=== PATIENT | male | born 1960 | race Caucasian/White ===

== ENCOUNTER 2016-04-14 11:46 | Inpatient (IN) | payer OTHER ==
[2016-04-14] VITALS (7 sets, daily range): BP systolic 142–174; BP diastolic 70–94
[~2016-04-14] VITALS: Ht 177.8 cm; Wt 73.9 kg
[~2016-04-14 11:46] MED LIST: ANAPROX DS1 TAB PO; ASPIR 8181 MG PO; DILAUDID2 MG/M1 IV; DOCUSATE SODIU100 MG PO; DURAGESIC25 MCG TOP; FOLIC ACID 1 MG PO; KCL IV; LIDODERM 5% PAT1 PAT EXT; MIRALAX17 GM PO; NICODERM C21 MG/24 H TOP; PROTONIX INJ40 MG IV; SANDOSTATI SC; Senokot S PO; TYLENOL TAB 32325 MG PO; Theragran Vitamins PO; [UNRECOGNIZED DRUG - OTHER] IV
--- NOTE | 2016-04-14 11:51 | NUR ---
PT TO ED WITH C/O VOMITED X 1 THIS AM, C/O UPPER ABD AND LEFT FLANK PAIN, "I HAVE A STENT IN MY PANCREAS". "THIS HAS BEEN GOING ON FOR THE PAST YEAR ON AND OFF, NOW IT'S WORSE".
--- NOTE | 2016-04-14 12:01 | ED GI/GU/ABDOMINAL COMPLAINT ---
History of Present Illness General Chief Complaint: Abdominal Pain/Flank Pain Stated Complaint: BIBA FOR ABD. PAIN Source: patient, old records, EMS Exam Limitations: no limitations Vital Signs & Intake/Output Vital Signs & Intake/Output Vital Signs Date Time Temp Pulse Resp B/P Pulse O2 O2 Flow FiO2 Ox Delivery Rate 04/14 1640 98.0 76 18 142/78 96 Room Air 04/14 1638 96 04/14 1549 97.0 80 18 174/90 04/14 1533 90 18 170/92 97 Room Air 04/14 1154 96.2 75 20 121/79 98 Room Air Room Air Allergies Coded Allergies: No Known Allergies (04/14/16) Reconcile Medications No Known Home Medications Triage Note: PT TO ED WITH C/O VOMITED X 1 THIS AM, C/O UPPER ABD AND LEFT FLANK PAIN, "I HAVE A STENT IN MY PANCREAS". Triage Nurses Notes Reviewed? yes Onset: Abrupt Duration: hour(s): (3) Timing: single episode today Quality/Severity: sharpness, severe Severity Numbers: 10 Location: epigastric, LUQ Radiation: back Activities at Onset: none Prior Abdominal Problems: similar symptoms No Modifying Factors: none Associated Symptoms: nausea/vomiting HPI: This is a 56 year old male who presents to the ER for chief complaint of abdominal pain, nausea and vomiting that started 3 hours prior to arrival. History of pancreatitis and pancreatic stent last year that was done at [place]. It is in the left upper quadrant and radiates to his back. No fever or chills. He states he has similar symptoms previously for otitis in 2015. At that time he was transferred from here to [place] where he had a pancreatic stent placed. He states he was very sick at that time and had some drains placed. No history of pancreatitis since his previous episode. He does drink alcohol a few times a week approximately 3-5 beers admits to drinking some beers last night. He states he was never told that he could drink alcohol. He also states he was never followed up at [place] as he was never given follow-up instructions. Past History Travel History Traveled to [place] past 21 day No Medical History Any Pertinent Medical History? see below for history Neurological: NONE EENT: NONE Cardiovascular: NONE Respiratory: NONE Gastrointestinal: GERD Hepatic: NONE Renal: NONE Musculoskeletal: chronic back pain, sciatica Psychiatric: NONE Endocrine: NONE Blood Disorders: NONE Cancer(s): NONE IDENTIFICATION OFFICER/Reproductive: NONE History of MRSA: No History of VRE: No History of CDIFF: No Surgical History Surgical History: appendectomy, PANCREATIC STENT Psychosocial History Who do you live with Patient/Self Services at Home None What is your primary language Latvian Tobacco Use: Current Not Daily Daily Tobacco Use Amount/Type: => 5 Cigarettes daily ETOH Use: occasional use Illicit Drug Use: marijuana Family History Family History, If Any: MOTHER (mother is alive and diabetic). FATHER (father of pneumonia). Hx Contributory? No Review of Systems Review of Systems Constitutional: Denies: chills, fever. EENTM: Reports: no symptoms. Respiratory: Denies: cough, short of breath, sputum production. Cardiovascular: Denies: chest pain, palpitations. GI: Reports: abdominal pain, nausea, vomiting. Denies: diarrhea. Genitourinary: Reports: no symptoms. Musculoskeletal: Reports: no symptoms. Skin: Reports: no symptoms. Neurological/Psychological: Reports: no symptoms. Hematologic/Endocrine: Denies: bruising, bleeding, polyuria, polydipsia. Immunologic/Allergic: Denies: splenectomy. All Other Systems: Reviewed and Negative Physical Exam Physical Exam General Appearance: well developed/nourished, alert, awake, mild distress Head: atraumatic, normal appearance Eyes: Bilateral: normal appearance, PERRL, EOMI. Ears, Nose, Throat, Mouth: hearing grossly normal, moist mucous membrane Neck: normal inspection, supple, full range of motion Respiratory: normal breath sounds, chest non-tender, no respiratory distress Cardiovascular: regular rate/rhythm Peripheral Pulses: 2+ radial (R), 2+ radial (L) Gastrointestinal: soft, tenderness (EPIGASTRIUM, LEFT UPPER QUADRA), NO REBOUND OR GUARDING Back: normal inspection, normal range of motion Extremities: normal range of motion Neurologic/Psych: no motor/sensory deficits, awake, alert, oriented x 3 Core Measures ACS in differential dx? No Severe Sepsis Present: No Septic Shock Present: No Progress Differential Diagnosis: biliary colic, gastritis, hepatitis, pancreatitis, peptic ulcer, PUD/GERD Plan of Care: Orders Procedure Date/time Status Clear Liquid Diet 04/15 B Active CBC WITHOUT DIFFERENTIAL 04/15 599 Active BASIC ELECTROLYTES PLUS BUN&CR 04/15 599 Active Nothing by Mouth 04/14 D Complete Pathway - chart 04/14 1640 Active House Staff 04/14 1640 Active Code Status 04/14 1640 Active CIWA 04/14 1549 Active Patient Data 04/14 1524 Active Admit to inpatient 04/14 1517 Active Vital Signs 04/14 1517 Active Code Status 04/14 1517 Complete EKG 04/14 1339 Active Intake & Output 04/14 1246 Active URINALYSIS 04/14 1218 Complete PARTIAL THROMBOPLASTIN TIME 04/14 1218 Complete PROTHROMBIN TIME 04/14 1218 Complete LIPASE 04/14 1218 Complete ETHANOL 04/14 1218 Complete COMPREHENSIVE METABOLIC PANEL 04/14 1218 Complete CBC WITHOUT DIFFERENTIAL 04/14 1218 Complete AMYLASE 04/14 1218 Complete AEROSOL (GEN) 04/14 UNK Complete VTE Mechanical Prophylaxis 04/14 UNK Active PHYSICIAN CONSULT 04/14 UNK Active Current Medications Sig/Anselmo Start time Last Medication Dose Stop Time Status Admin Acetaminophen 650 MG Q8P PRN 04/14 1645 UNVr (Tylenol) Acetaminophen 1,000 MG Q8P PRN 04/14 1645 UNVr (Ofirmev) Lactated Ringer's 1,000 ML Q6H 04/14 1645 UNVr (Lactated Ringers) Morphine Sulfate 2 MG Q4P PRN 04/14 1645 UNVr (Morphine) Enoxaparin Sodium 40 MG DAILY 04/14 1633 UNVr (Lovenox) Laboratory Tests 04/14/16 1418: Urinalysis LIGHT H, Urine Color YEL, Urine Clarity HAZY H, Urine pH 5.5, Ur Specific [place] >= 1.030, Urine Protein TRACE H, Urine Ketones TRACE H, Urine Nitrite NEG, Urine Bilirubin NEG, Urine Urobilinogen 0.2, Ur Leukocyte Esterase NEG, Ur Microscopic SEDIMENT EXAMINED, Urine RBC 3-5, Urine WBC RARE, Ur Epithelial Cells FEW, Granular Casts 1-3 H, Urine Mucus FEW, Urine Hemoglobin MOD H, Urine Glucose 100 H 04/14/16 1234: Anion Gap 19 H, Estimated GFR > 60, BUN/Creatinine Ratio 11.7, Glucose 169 H, Calcium 9.0, Total Bilirubin 0.6, AST 21, ALT 26, Alkaline Phosphatase 141 H, Total Protein 7.5, Albumin 4.1, Globulin 3.4, Albumin/Globulin Ratio 1.2, Amylase 1060 H, Lipase 8724 H, PT 10.0, INR 0.95, APTT 31, CBC w Diff NO MAN DIFF REQ, RBC 5.07, MCV 93.2, MCH 31.6 H, RDW 14.5, MPV 6.8 L, Gran % 81.3 H, Lymphocytes % 14.2 L, Monocytes % 4.1, Eosinophils % 0.1, Basophils % 0.3, Absolute Granulocytes 10.3 H, Absolute Lymphocytes 1.8, Absolute Monocytes 0.5, Absolute Eosinophils 0, Absolute Basophils 0, PUBS MCHC 33.9, Serum Alcohol 73.0 No pancreatic stent visualized on CAT scan of the abdomen. Patient presents with acute alcoholic pancreatitis. He is requiring multiple cases of IV pain medications secondary to severe 10/ 10 pain. One episode of vomiting here. He was given IV fluids. GI consultation. He patient admitted to the hospitalist service. (JANET FREDERICK,[facility]) Diagnostic Imaging: Viewed by Me: CT Scan. Discussed w/RAD: CT Scan. Radiology Impression: EXAM TYPE: CAT - CT ABD & PELVIS W/O IV CONTRAS EXAMINATION: CT ABDOMEN AND PELVIS WITHOUT CONTRAST CLINICAL INFORMATION: History of pancreatitis with stent placement COMPARISON: CT scan of the abdomen and pelvis dated 10/13/2014 TECHNIQUE: Multidetector volumetric imaging was performed from the superior aspect of the liver through the pubic symphysis. Sagittal and coronal reformatted images were obtained on the technologist's workstation. DLP: 297 mGy-cm. FINDINGS: LUNG BASES: The lung bases included on this study are unremarkable. LIVER, GALLBLADDER, AND BILIARY TREE: Unenhanced liver is normal in size and attenuation with no focal finding The gallbladder is moderately distended. There is an intraluminal calcification layering dependently, measuring approximately 0.6 cm, likely representing a gallstone. No gallbladder wall edema or pericholecystic fluid identified. No apparent intrahepatic biliary ductal dilatation on noncontrast images. No common bile duct dilatation is appreciated. A stent is not identified on the current CT. PANCREAS: The cystic masses associated with the pancreas seen on the earlier study are no longer identified. The pancreatic duct in the body and tail measures between 0.4 and 0.5 cm. The pancreatic and common bile ducts in the region of the pancreatic head are not well delineated. No stent is seen. There is some mild edema in the mesenteric fat surrounding the body and head of the pancreas but no peripancreatic fluid collections are seen at this time. The edematous changes have improved since the 2015 exam. No discrete pancreatic mass delineated on the noncontrast enhanced study SPLEEN: The spleen is normal in size and attenuation with no focal findings ADRENAL GLANDS: Mild prominence to the left adrenal gland is noted without a discrete mass. Right adrenal gland is normal in appearance. KIDNEYS AND URETERS: Both kidneys are normal in size and cortical thickness with no hydronephrosis, mass, stone or perinephric collection. BLADDER: The urinary bladder is incompletely distended and unremarkable in appearance GASTROINTESTINAL TRACT: There is no evidence for large or small bowel obstruction or acute inflammation. There is some diverticulosis of the sigmoid and descending colon without acute diverticulitis. Some radiodense material which may represent a suture line in the region of the ileocecal junction ABDOMINAL WALL: No hernia is seen. LYMPH NODES: No bulky mesenteric or retroperitoneal adenopathy is seen at this time. There are a few mildly prominent peripancreatic lymph nodes, improved over the previous study VASCULAR: No aneurysm is seen in the abdominal aorta PELVIC VISCERA: No mass is seen in the pelvis. There is no free fluid or loculated fluid collection OSSEOUS STRUCTURES: No acute bony abnormality IMPRESSION: The changes of pancreatitis and associated pseudocysts seen on the 2015 study are no longer identified. There is some mild residual dilatation of the pancreatic duct in the mid body and tail along with some mild edema in the peripancreatic fat. The pancreas duct in the region of the head of the pancreas is not well delineated and the stent is not identified. There is no common bile duct dilatation or common bile duct stent seen There is cholelithiasis without evidence for acute cholecystitis Initial ED EKG: NSR Departure Departure Time of Disposition: 1527 Disposition: STILL A PATIENT Condition: Stable Clinical Impression Primary Impression: Pancreatitis Referrals: VIDHI MATIAS DO (PCP/Family) Departure Forms: Customer Survey General Discharge Information Prescriptions: Current Visit Scripts No Known Home Medications Admission Note Spoke With: SUSANA FREDERICK,[place] Documentation of Exam: Documentation of any treatments & extenuating circumstances including Concerns Regarding Discharge (functional status, medication knowledge or non-compliance, living conditions, etc.) that warrant an admission rather than observation: [NPO , IV FLUIDS, PAIN CONTROL, MONITOR I/O, GI CONSULTATION, MONITOR FOR SIGNS OF WITHDRAWAL] Critical Care Note Critical Care Note Critical Care Time: 30-74 min
--- NOTE | 2016-04-14 12:02 | NUR ---
PT AMB TO ROOM 8, AWAITING EVAL.
--- NOTE | 2016-04-14 12:14 | NUR ---
DR GONZALES AT BEDSIDE.
--- NOTE | 2016-04-14 12:36 | NUR ---
BLOOD DRAWN AND SENT TO LAB. LAV,SST,BLUE
[2016-04-14 12:50] LABS: ABSOLUTE BASOPHIL COUNT 0 /CUMM (0.0-0.2); ABSOLUTE EOSINOPHIL COUNT 0 /CUMM (0.0-0.7); ABSOLUTE GRANULOCYTE CT 10.3 /CUMM (1.4-6.5); ABSOLUTE LYMPH COUNT 1.8 /CUMM (1.2-3.4); ABSOLUTE MONOCYTE COUNT 0.5 /CUMM (0.10-0.60); BASOPHIL % 0.3 % (0.0-2.0); EOSINOPHIL % 0.1 % (0-5); HEMATOCRIT 47.3 % (42-52); MEAN CORPUSCULAR HGB 31.6 PG (27.0-31.0); MEAN CORPUSCULAR HGB CONC 33.9 G/DL (33.0-37.0); MEAN CORPUSCULAR VOLUME 93.2 FL (80.0-94.0); MEAN PLATELET VOLUME 6.8 FL (7.4-10.4); PLATELET COUNT 231 /CUMM (130-400); RBC DISTRIBUTION WIDTH 14.5 % (11.5-14.5); RED BLOOD CELL CT 5.07 /CUMM (4.70-6.10); WHITE BLOOD CELL COUNT 12.7 /CUMM (4.8-10.8)
[2016-04-14 12:51] LABS: GRANULOCYTE % 81.3 % (42.2-75.2)
[2016-04-14 13:04] LABS: PTT 31 SEC (25-37)
--- NOTE | 2016-04-14 14:11 | NUR ---
PT TO CAT SCAN
--- NOTE | 2016-04-14 14:15 | NUR ---
BACK FROM CAT SCAN.
--- NOTE | 2016-04-14 14:18 | NUR ---
URINE TRIO SENT.
--- NOTE | 2016-04-14 14:51 | CT SCAN REPORT ---
EXAMINATION: CT ABDOMEN AND PELVIS WITHOUT CONTRAST CLINICAL INFORMATION: History of pancreatitis with stent placement COMPARISON: CT scan of the abdomen and pelvis dated 10/13/2014 TECHNIQUE: Multidetector volumetric imaging was performed from the superior aspect of the liver through the pubic symphysis. Sagittal and coronal reformatted images were obtained on the technologist's workstation. DLP: 297 mGy-cm. FINDINGS: LUNG BASES: The lung bases included on this study are unremarkable. LIVER, GALLBLADDER, AND BILIARY TREE: Unenhanced liver is normal in size and attenuation with no focal finding The gallbladder is moderately distended. There is an intraluminal calcification layering dependently, measuring approximately 0.6 cm, likely representing a gallstone. No gallbladder wall edema or pericholecystic fluid identified. No apparent intrahepatic biliary ductal dilatation on noncontrast images. No common bile duct dilatation is appreciated. A stent is not identified on the current CT. PANCREAS: The cystic masses associated with the pancreas seen on the earlier study are no longer identified. The pancreatic duct in the body and tail measures between 0.4 and 0.5 cm. The pancreatic and common bile ducts in the region of the pancreatic head are not well delineated. No stent is seen. There is some mild edema in the mesenteric fat surrounding the body and head of the pancreas but no peripancreatic fluid collections are seen at this time. The edematous changes have improved since the 2015 exam. No discrete pancreatic mass delineated on the noncontrast enhanced study SPLEEN: The spleen is normal in size and attenuation with no focal findings ADRENAL GLANDS: Mild prominence to the left adrenal gland is noted without a discrete mass. Right adrenal gland is normal in appearance. KIDNEYS AND URETERS: Both kidneys are normal in size and cortical thickness with no hydronephrosis, mass, stone or perinephric collection. BLADDER: The urinary bladder is incompletely distended and unremarkable in appearance GASTROINTESTINAL TRACT: There is no evidence for large or small bowel obstruction or acute inflammation. There is some diverticulosis of the sigmoid and descending colon without acute diverticulitis. Some radiodense material which may represent a suture line in the region of the ileocecal junction ABDOMINAL WALL: No hernia is seen. LYMPH NODES: No bulky mesenteric or retroperitoneal adenopathy is seen at this time. There are a few mildly prominent peripancreatic lymph nodes, improved over the previous study VASCULAR: No aneurysm is seen in the abdominal aorta PELVIC VISCERA: No mass is seen in the pelvis. There is no free fluid or loculated fluid collection OSSEOUS STRUCTURES: No acute bony abnormality IMPRESSION: The changes of pancreatitis and associated pseudocysts seen on the 2015 study are no longer identified. There is some mild residual dilatation of the pancreatic duct in the mid body and tail along with some mild edema in the peripancreatic fat. The pancreas duct in the region of the head of the pancreas is not well delineated and the stent is not identified. There is no common bile duct dilatation or common bile duct stent seen There is cholelithiasis without evidence for acute cholecystitis
--- NOTE | 2016-04-14 15:31 | NUR ---
REPORT REC'D PATIENT RE-SEEN BY ER MD MATTHEW MEDICATED W/ 1 MG DILAUDID IV 1000 ML D51/2 NS AT 150 / HR EVAL BY HOUSE STAFF
--- NOTE | 2016-04-14 16:05 | NUR ---
RE-SEEN BY ER MD PATIENT STILL C/O INCREASED ABD PAIN MEDICATED W/ ATIVAN AND DILAUDID PATIENT REMAINS ALERT ORIENTED SKIN WARM DRY B/P REMIANS ELEVATED
--- NOTE | 2016-04-14 16:09 | History & Physical ---
MACEY HITCHCOCK 04/14/16 1609: General Information and HPI MD Statement: I have seen and personally examined ASTRID MICHAEL and documented this H&P. The patient is a 56 year old M who presented with a patient stated chief complaint of abdominal pain Source of Information: patient, old records Exam Limitations: no limitations History of Present Illness: 56-year-old man with past history significant for alcohol abuse, pancreatitis complicated by pseudocyst status post stent done at [place] in 2014, here for evaluation of abdominal pain. States that this afternoon he had severe abdominal pain severity of 12/10 with radiation to his back. Patient reports that he often has abdominal pain which is constantly there since the past few years. Aggravated on moving and walking around and sometimes is improved on eating. However this afternoon it was so severe that he decided to come to the ED. Reports having some nausea and nonbloody, nonbilious vomiting. Denies fever, chills, shortness of breath. Patient continues to drink alcohol, drinks 1-2 beers every day with dinner and on Wednesdays drinks about 3-4 beers. Allergies/Medications Allergies: Coded Allergies: No Known Allergies (04/14/16) Home Med list No Known Home Medications Compliance With Home Meds: UNKNOWN Past History Travel History Traveled to [place] past 21 day No Medical History Neurological: NONE EENT: NONE Cardiovascular: NONE Respiratory: NONE Gastrointestinal: GERD Hepatic: NONE Renal: NONE Musculoskeletal: chronic back pain, sciatica Psychiatric: NONE Endocrine: NONE Blood Disorders: NONE Cancer(s): NONE SCAFFOLD WORKER/Reproductive: NONE History of MRSA: No History of VRE: No History of CDIFF: No Surgical History Surgical History: appendectomy, PANCREATIC STENT Past Family/Social History Family History Relations & Conditions if any MOTHER (mother is alive and diabetic). FATHER (father of pneumonia). Psychosocial History Where do you live? Home Who Do You Live With? self Services at Home: None Primary Language: Hebrew ETOH Use: occasional use Illicit Drug Use: marijuana Living Will? no Power of Commanding Officer Motorized Squad/HCP? no Name of POA/HCP: daughter Functional Ability ADLs Independent: dressing, eating, toileting, bathing. Ambulation: independent IADLs Independent: shopping, housework, finances, food prep, telephone, transportation , medication admin. Review of Systems Review of Systems Constitutional: Denies: chills, diaphoresis, fever, malaise, weakness, unexplained weight loss. Cardiovascular: Denies: chest pain, edema, orthopena, palpitations, peripheral edema, syncope. Respiratory: Denies: cough, hemoptysis, orthopnea, short of breath, sputum production, stridor, wheezing. GI: Reports: abdominal pain, nausea, vomiting. Exam & Diagnostic Data Last 24 Hrs of Vital Signs/I&O Vital Signs Date Time Temp Pulse Resp B/P Pulse O2 O2 Flow FiO2 Ox Delivery Rate 04/14 2149 97.5 76 20 160/94 95 04/14 1946 97.8 68 18 152/80 04/14 1854 97.8 84 18 164/90 04/14 1822 98.0 84 18 144/70 04/14 1714 97.8 80 18 142/80 04/14 1640 98.0 76 18 142/78 96 Room Air 04/14 1638 96 04/14 1549 97.0 80 18 174/90 04/14 1533 90 18 170/92 97 Room Air 04/14 1154 96.2 75 20 121/79 98 Room Air Room Air Intake & Output 04/14 1600 04/14 0800 04/14 0000 Intake Total 1000 Output Total Balance 1000 Intake, IV 1000 Patient 165 lb Weight Physical Exam General Appearance Alert, Oriented X3, Cooperative, No Acute Distress Cardiovascular Regular Rate, Normal S1, Normal S2 Lungs Clear to Auscultation, Normal Air Movement Abdomen Normal Bowel Sounds, Soft, midepigastric tenderness Extremities No Edema Diagnostic Data Other Results - CT ABD & PELVIS W/O IV CONTRAST FINDINGS: LUNG BASES: The lung bases included on this study are unremarkable. LIVER, GALLBLADDER, AND BILIARY TREE: Unenhanced liver is normal in size and attenuation with no focal finding The gallbladder is moderately distended. There is an intraluminal calcification layering dependently, measuring approximately 0.6 cm, likely representing a gallstone. No gallbladder wall edema or pericholecystic fluid identified. No apparent intrahepatic biliary ductal dilatation on noncontrast images. No common bile duct dilatation is appreciated. A stent is not identified on the current CT. PANCREAS: The cystic masses associated with the pancreas seen on the earlier study are no longer identified. The pancreatic duct in the body and tail measures between 0.4 and 0.5 cm. The pancreatic and common bile ducts in the region of the pancreatic head are not well delineated. No stent is seen. There is some mild edema in the mesenteric fat surrounding the body and head of the pancreas but no peripancreatic fluid collections are seen at this time. The edematous changes have improved since the 2015 exam. No discrete pancreatic mass delineated on the noncontrast enhanced study SPLEEN: The spleen is normal in size and attenuation with no focal findings ADRENAL GLANDS: Mild prominence to the left adrenal gland is noted without a discrete mass. Right adrenal gland is normal in appearance. KIDNEYS AND URETERS: Both kidneys are normal in size and cortical thickness with no hydronephrosis, mass, stone or perinephric collection. BLADDER: The urinary bladder is incompletely distended and unremarkable in appearance GASTROINTESTINAL TRACT: There is no evidence for large or small bowel obstruction or acute inflammation. There is some diverticulosis of the sigmoid and descending colon without acute diverticulitis. Some radiodense material which may represent a suture line in the region of the ileocecal junction ABDOMINAL WALL: No hernia is seen. LYMPH NODES: No bulky mesenteric or retroperitoneal adenopathy is seen at this time. There are a few mildly prominent peripancreatic lymph nodes, improved over the previous study VASCULAR: No aneurysm is seen in the abdominal aorta PELVIC VISCERA: No mass is seen in the pelvis. There is no free fluid or loculated fluid collection OSSEOUS STRUCTURES: No acute bony abnormality IMPRESSION: The changes of pancreatitis and associated pseudocysts seen on the 2015 study are no longer identified. There is some mild residual dilatation of the pancreatic duct in the mid body and tail along with some mild edema in the peripancreatic fat. The pancreas duct in the region of the head of the pancreas is not well delineated and the stent is not identified. There is no common bile duct dilatation or common bile duct stent seen There is cholelithiasis without evidence for acute cholecystitis Assessment/Plan Assessment: 56-year-old man with past history significant for alcohol abuse, pancreatitis complicated by pseudocyst status post stent done at [place] in 2015, here for evaluation of abdominal pain. Found to have elevated white count with left shift and no bandemia, elevated ALP of 141, increased amylase 1060, lipase 8724, CT abdomen and pelvis showed resolution of the pseudocyst from the 2015 study, mild residual visual dilatation of the pancreatic duct, no bile duct dilatation and cholelithiasis. Patient will be admitted to the general medicine floor As Ranked By This Provider Problem List: 1. Pancreatitis Assessment/Plan Secondary to alcohol use versus gallstones ? Acute on chronic Patient wishes to eat will keep him on a clear liquid diet and maintain him on IV Ringer lactate as well at 200 mL per hour GI consulted Pain control with IV morphine 2. Alcohol withdrawal Assessment/Plan Will place on CIWA protocol 3. DVT prophylaxis Assessment/Plan Subcutaneous Lovenox 4. DNI (do not intubate) 5. DNR (do not resuscitate) Core Measures/Miscellaneous Acute Coronary Syndrome ACS Diagnosis: No Cerebrovascular Accident CVA/TIA Diagnosis: No Congestive Heart Failure CHF Diagnosis: No Venous Thromboembolism VTE Risk Factors: Age > 40 VTE Prophylaxis Ordered Inpt: Pharm- Lovenox No Mech VTE prophylaxis d/t: No contraindications No VTE Pharm Prophylaxis d/t: No contraindications VTE Diagnosis: No VTE Type: NONE VTE Confirmed by (Test): NONE Severe Sepsis Severe Sepsis Present: No Septic Shock Septic Shock Present: No Miscellaneous Documentation Attending Case Discussed With: SUSANA FREDERICK,PANCHO Primary Care Physician: VIDHI MATIAS DO Patient sees these Specialists None Level of Patient Care: General Medicine SHARLA GARCIA MD 04/14/16 2208: Resident Review Statement Resident Statement: examined this patient, discussed with news department intern, agreed with news department intern, discussed with family Other Findings: 56-year-old male with past medical history of pancreatitis with complex cyst on the bubba-pancreatic head and tail, portal vein thrombosis with cavernous transformation presents to the ED with complaints of abdominal pain, nausea and vomiting that started about 3 hours prior to arrival. Patient reports abdominal pain sometimes radiated to the back and to the left side, 7 x 10 in intensity, associated with nausea and vomiting. Denies fevers or chills. Had similar symptoms in 2014 during which time he was diagnosed with complex cyst and cavernous sinus thrombosis for which she was referred to [place] and had stent placements. Is that he has not followed up that he'll since he was discharged in 2015. Continues to drink 3-5 beers every night after dinner. His last drink supposedly was yesterday. Also complains of chronic diarrhea with 2-3 bowel movements. Otherwise denies chest pain, palpitations, syncope, urinary tract infection symptoms, constipation. On examination patient alert awake oriented, in no acute distress Cardiovascular: S1, S2 regular Respiratory: Decreased breath sounds on the right compared to the left Abdomen: Soft, mild discomfort in the epigastric region Extremities: No edema Please look H&P for labs and imaging studies Assessment and plan 1. Abdominal pain secondary to recurrent pancreatitis most likely due to alcohol. No other etiology identified. We will admit him to general medical floor, start him on IV fluids and pain medications. Will start him on a clear liquid diet and advance as tolerated. Given his complicated history in the past we will obtain GI consult in a.m. Will maintain strict I's and O's office 24 hours and monitor H&H and BUN for worsening pancreatitis. 2. EtOH dependence: We will start him on CIWA protocol and Ativan per CIWA. 3. History of portal vein thrombosis: Was on warfarin currently for fit as per recommendation by his physician DNR/DNI DVT prophylaxis with Lovenox
--- NOTE | 2016-04-14 16:09 | Admission Certification ---
Admission Certification Certification Statement - As attending physician, I certify that at the time of - admission, based on clinical presentation, severity of - symptoms, need for further diagnostic testing and - therapeutic interventions, and risk of adverse outcomes - without in-hospital treatment, in my clinical assessment, - this patient requires an acute hospital stay for a minimum - of two nights or longer. I have also considered psychsocial - factors such as support system, advanced age, financial - issues, cognitive issues, and failed out-patient treatments, - past re-admission history, safety of patient, and lack of - compliance as applicable. Specific rationale supporting this admission is: Acute pancreatitis
--- NOTE | 2016-04-14 16:13 | PN- Att Addend ---
Attending Addendum Attending Brief Note Patient seen and examined in the emergency room. Plan of care discussed with the medical team and the patient. Available lab work and radiology test reports were reviewed. Patient's 56-year-old male with past history of alcohol abuse and the severe pancreatitis complicated by pseudocyst. Patient in 2014 had a pancreatic stent done at [facility]. Since then patient has been having chronic off-and-on pain. Unfortunately patient continues to drink in moderate amount. He drinks 2-3 beers per day. Last drink was last evening. He presented today with the epigastric pain and back pain without any fever. He did have nausea and vomited several times. He also had mild diarrhea without any hematemesis or melena. Please see resident note for family history, social history, medication history and past medical history. Vital Signs Date Time Temp Pulse Resp B/P Pulse O2 O2 Flow FiO2 Ox Delivery Rate 04/14 1549 97.0 80 18 174/90 04/14 1533 90 18 170/92 97 Room Air 04/14 1154 96.2 75 20 121/79 98 Room Air Room Air Intake & Output 04/14 1600 04/14 0800 04/14 0000 Intake Total 1000 Output Total Balance 1000 Intake, IV 1000 Patient 165 lb Weight Exam: General: Patient awake alert oriented without any distress CVS: S1 plus S2 without any murmur or gallops Chest: Few scattered crepitation without any wheeze. There is no respiratory distress. Abdomen: Soft tender in epigastric area without any guarding or rebound, bowel sound present, SALES TRAINING MANAGER: Awake alert oriented without any focal neuro deficit and follows command appropriately Extremities: No edema; no clubbing or cyanosis noted Laboratory Tests 04/14 04/14 1418 1234 Chemistry Sodium (137 - 145 mmol/L) 142 Potassium (3.5 - 5.1 mmol/L) 4.1 Chloride (98 - 107 mmol/L) 100 Carbon Dioxide (22 - 30 mmol/L) 24 Anion Gap (5 - 16) 19 H BUN (9 - 20 mg/dL) 7 L Creatinine (0.7 - 1.2 mg/dL) 0.6 L Estimated GFR (>60 ml/min) > 60 BUN/Creatinine Ratio (7 - 25 %) 11.7 Glucose (65 - 99 mg/dL) 169 H Calcium (8.4 - 10.2 mg/dL) 9.0 Total Bilirubin (0.2 - 1.3 mg/dL) 0.6 AST (17 - 59 U/L) 21 ALT (21 - 72 U/L) 26 Alkaline Phosphatase (< 127 U/L) 141 H Total Protein (6.3 - 8.2 g/dL) 7.5 Albumin (3.5 - 5.0 g/dL) 4.1 Globulin (1.9 - 4.2 gm/dL) 3.4 Albumin/Globulin Ratio (1.1 - 2.2 %) 1.2 Amylase (30 - 110 U/L) 1060 H Lipase (23 - 300 U/L) 8724 H Coagulation PT (9.4 - 12.5 SEC) 10.0 INR (0.90 - 1.17) 0.95 APTT (25 - 37 SEC) 31 Hematology CBC w Diff NO MAN DIFF REQ WBC (4.8 - 10.8 /CUMM) 12.7 H RBC (4.70 - 6.10 /CUMM) 5.07 Hgb (14.0 - 18.0 G/DL) 16.0 Hct (42 - 52 %) 47.3 MCV (80.0 - 94.0 FL) 93.2 MCH (27.0 - 31.0 PG) 31.6 H RDW (11.5 - 14.5 %) 14.5 Plt Count (130 - 400 /CUMM) 231 MPV (7.4 - 10.4 FL) 6.8 L Gran % (42.2 - 75.2 %) 81.3 H Lymphocytes % (20.5 - 51.1 %) 14.2 L Monocytes % (1.7 - 9.3 %) 4.1 Eosinophils % (0 - 5 %) 0.1 Basophils % (0.0 - 2.0 %) 0.3 Absolute Granulocytes (1.4 - 6.5 /CUMM) 10.3 H Absolute Lymphocytes (1.2 - 3.4 /CUMM) 1.8 Absolute Monocytes (0.10 - 0.60 /CUMM) 0.5 Absolute Eosinophils (0.0 - 0.7 /CUMM) 0 Absolute Basophils (0.0 - 0.2 /CUMM) 0 PUBS MCHC (33.0 - 37.0 G/DL) 33.9 Toxicology Serum Alcohol (<10 MG/DL) 73.0 Urines Urinalysis LIGHT H Urine Color (YEL,AMB,STR) YEL Urine Clarity (CLEAR) HAZY H Urine pH (5.0 - 8.0) 5.5 Ur Specific Ada (1.001 - 1.035) >= 1.030 Urine Protein (NEG,<30 MG/DL) TRACE H Urine Ketones (NEG) TRACE H Urine Nitrite (NEG) NEG Urine Bilirubin (NEG) NEG Urine Urobilinogen (0.1 - 1.0 EU/dl) 0.2 Ur Leukocyte Esterase (NEG) NEG Ur Microscopic SEDIMENT EXAMINED Urine RBC (0 - 5 /HPF) 3-5 Urine WBC (0 - 2 /HPF) RARE Ur Epithelial Cells (NONE,FEW) FEW Granular Casts (NONE /LPF) 1-3 H Urine Mucus (FEW,NONE) FEW Urine Hemoglobin (NEG) MOD H Urine Glucose (N MG/DL) [address] abdomen and pelvis The changes of pancreatitis and associated pseudocysts seen on the 2014 study are no longer identified. There is some mild residual dilatation of the pancreatic duct in the mid body and tail along with some mild edema in the peripancreatic fat. The pancreas duct in the region of the head of the pancreas is not well delineated and the stent is not identified. There is no common bile duct dilatation or common bile duct stent seen There is cholelithiasis without evidence for acute cholecystitis Assessment and problem list * Acute recurrent pancreatitis likely related to alcohol use; patient currently not on any medication which can be implicated in pancreatitis * Chronic back pain- patient awaiting evaluation at [facility] * Alcohol abuse * Hyperglycemia Plan * Continue clear liquids and advance diet as tolerated * IV Ringer's lactate for at least 1 L * 1-2 mg morphine IV when necessary every 4 hours for pain control * Watch for withdrawal symptoms from alcohol. [facility] protocol. * GI consult
--- NOTE | 2016-04-14 16:39 | NUR ---
PATIENT REPORTS PAIN HAS IMPROVED SKIN WARM DRY, NO TREMOR , NO NAUSEA
--- NOTE | 2016-04-14 17:12 | NUR ---
PATIENT REMAINS STABLE ALERT ORIENTED RESTING QUIETLY STATES PAIN HAS IMPROVED PAIN LEVEL NOW 5/10 SKIN WARM DRY AFEBRILE IV D51/2 D/C'D 350 ML TAKEN IV 1000 RL AT 200 ML /HR
--- NOTE | 2016-04-14 18:21 | NUR ---
PATIENT REMAINS COMFORTABLE, SKIN WARM DRY ,NAD VITALS STABLE ,NO TREMOR NO VOMITING OFFERS NO COMPLAINTS
--- NOTE | 2016-04-14 18:50 | NUR ---
PT HAS BED ASSIGNMENT 229-2. RN NOTIFIED.
--- NOTE | 2016-04-14 18:52 | NUR ---
PATIENT REPORT RETURNING OF ABD PAIN DENIES TREMOR OR NAUSEA MEDICATED W/ MORPHINE AND ATIVAN PER ORDER
--- NOTE | 2016-04-14 19:44 | NUR ---
PATIENT SLEEPING SOUNDLY SKIN WARM DRY STATES PAIN HAS IMPROVED REPORTS NOW 06/15 NO TREMOR ALERT ORIENTED REPORT GIVEN TO FLOOR
[2016-04-15] VITALS (11 sets, daily range): BP systolic 120–160; BP diastolic 60–94
[2016-04-15 08:25] LABS: ABSOLUTE BASOPHIL COUNT 0 /CUMM (0.0-0.2); ABSOLUTE EOSINOPHIL COUNT 0 /CUMM (0.0-0.7); ABSOLUTE LYMPH COUNT 1.3 /CUMM (1.2-3.4); ABSOLUTE MONOCYTE COUNT 1.3 /CUMM (0.10-0.60); BASOPHIL % 0 % (0.0-2.0); EOSINOPHIL % 0.2 % (0-5); GRANULOCYTE % 79.2 % (42.2-75.2); MEAN CORPUSCULAR HGB CONC 34.5 G/DL (33.0-37.0); MEAN CORPUSCULAR VOLUME 92.8 FL (80.0-94.0); MEAN PLATELET VOLUME 7.5 FL (7.4-10.4); PLATELET COUNT 159 /CUMM (130-400); RBC DISTRIBUTION WIDTH 14.4 % (11.5-14.5); RED BLOOD CELL CT 4.28 /CUMM (4.70-6.10); WHITE BLOOD CELL COUNT 12.6 /CUMM (4.8-10.8)
--- NOTE | 2016-04-15 08:50 | PN- Housestaff ---
Subjective Follow-up For: Acute pancreatitis Subjective: Seen and patient states his pain is well controlled. Denies pain, nausea, vomiting, fever, chills. Review of Systems Constitutional: Denies: chills, diaphoresis, fever, malaise, weakness, unexplained weight loss. Cardiovascular: Denies: chest pain, edema, orthopena, palpitations, peripheral edema, syncope. Respiratory: Denies: cough, hemoptysis, orthopnea, short of breath, sputum production, stridor, wheezing. Objective Last 24 Hrs of Vital Signs/I&O Vital Signs Date Time Temp Pulse Resp B/P Pulse O2 O2 Flow FiO2 Ox Delivery Rate 04/15 0901 99.0 62 20 120/68 94 04/15 0617 97.7 71 20 142/80 95 Room Air 04/15 0600 97.7 71 20 142/80 04/15 0400 98.1 68 20 150/80 04/15 0341 98.6 68 20 150/80 95 Room Air 04/15 0000 97.5 76 20 160/94 04/14 2201 97.5 76 18 160/94 04/14 2149 97.5 76 20 160/94 95 04/14 1946 97.8 68 18 152/80 04/14 1854 97.8 84 18 164/90 04/14 1822 98.0 84 18 144/70 04/14 1714 97.8 80 18 142/80 04/14 1640 98.0 76 18 142/78 96 Room Air 04/14 1638 96 04/14 1549 97.0 80 18 174/90 04/14 1533 90 18 170/92 97 Room Air Intake & Output 04/15 1600 08 0800 04/15 0000 Intake Total 2040 900 Output Total Balance 2040 900 Intake, IV 1600 550 Intake, Oral 440 350 Number 0 Bowel Movements Patient 164 lb Weight Physical Exam General Appearance: Alert, Oriented X3, Cooperative, No Acute Distress Cardiovascular: Regular Rate, Normal S1, Normal S2 Lungs: Clear to Auscultation, Normal Air Movement Abdomen: Normal Bowel Sounds, Soft, tenderness to palpation Current Medications: Current Medications Sig/Anselmo Start time Last Medication Dose Route Stop Time Status Admin Acetaminophen 650 MG Q8P PRN 04/14 1645 AC PO Acetaminophen 1,000 MG Q8P PRN 04/14 1645 AC IV Albuterol Sulfate 3 ML ONCE ONE 04/14 1545 DC 04/14 INH 04/14 1546 1638 Dextrose/Sodium 1,000 ML Q6H 04/14 1530 DC 04/14 Chloride IV 1531 Enoxaparin Sodium 0 .STK-MED ONE 04/14 1721 DC SC Enoxaparin Sodium 40 MG DAILY 04/14 1633 AC 04/15 SC 0957 Hydromorphone HCl 2 MG Q4P PRN 04/15 1115 AC 04/15 IV 1240 Hydromorphone HCl 0.6 MG ONCE ONE 04/15 0545 DC 04/15 IV 04/15 0546 0652 Hydromorphone HCl 1 MG ONCE ONE 04/14 1600 DC 04/14 IV 04/14 1601 1605 Hydromorphone HCl 0 .STK-MED ONE 04/14 1556 DC .ROUTE Hydromorphone HCl 1 MG ONCE ONE 04/14 1530 DC 04/14 IV 04/14 1531 1526 Hydromorphone HCl 0 .STK-MED ONE 04/14 1522 DC .ROUTE Ipratropium [place] 2.5 ML ONCE ONE 04/14 1545 DC 04/14 INH 04/14 1546 1637 Lactated Ringer's 1,000 ML Q5H 04/14 1730 AC 04/15 IV 0956 Lactated Ringer's 1,000 ML Q6H 04/14 1645 DC 04/14 IV 1705 Lorazepam 0 Q1P PRN 04/14 1945 AC IV Lorazepam 0 .STK-MED ONE 04/14 1848 DC .ROUTE Lorazepam 2 MG ONE ONE 04/14 1830 DC 04/14 IV 04/14 1831 1851 Lorazepam 1 MG ONCE ONE 04/14 1600 DC 04/14 IV 04/14 1601 1605 Lorazepam 0 .STK-MED ONE 04/14 1557 DC .ROUTE Morphine Sulfate 0 .STK-MED ONE 04/14 1848 DC .ROUTE Morphine Sulfate 2 MG Q4P PRN 04/14 1645 DC 04/15 IV 0838 Last 24 Hrs of Lab/Rafal Results Last 24 Hrs of Labs/Mics: Laboratory Tests 04/15/16 0645: Anion Gap 12, Estimated GFR > 60, BUN/Creatinine Ratio 6.0 L, CBC w Diff NO MAN DIFF REQ, RBC 4.28 L, MCV 92.8, MCH 32.0 H, RDW 14.4, MPV 7.5, Gran % 79.2 H, Lymphocytes % 10.1 L, Monocytes % 10.5 H, Eosinophils % 0.2, Basophils % 0 L, Absolute Granulocytes 10.0 H, Absolute Lymphocytes 1.3, Absolute Monocytes 1.3 H, Absolute Eosinophils 0, Absolute Basophils 0, PUBS MCHC 34.5 Assessment/Plan Assessment: 56-year-old gentleman with past history significant for alcohol abuse, pancreatitis complicated by pseudocyst status post stent done at [address] in 2014, here for evaluation of abdominal pain. Found to have elevated white count with left shift and no bandemia, elevated ALP of 141, increased amylase 1060, lipase 8724, CT abdomen and pelvis showed resolution of the pseudocyst from the 2015 study, mild residual visual dilatation of the pancreatic duct, no bile duct dilatation and cholelithiasis. Pain is improved today Plan Pancreatitis Secondary to alcohol use versus gallstones maintain him on IV Ringer lactate GI consulted Pain control with IV morphine Alcohol withdrawal place on CIWA protocol DVT prophylaxis Subcutaneous Lovenox DNI (do not intubate) . DNR (do not resuscitate) Problem List: 1. Leukocytosis 2. Pancreatitis 3. Alcohol withdrawal Pain Ratin Pain Location: Abdomen Pain Goal: Pain 4 or less Pain Plan: Current Regimen Tomorrow's Labs & Rationales: None required
[2016-04-15 09:12] LABS: HEMATOCRIT 39.7 % (42-52)
--- NOTE | 2016-04-15 12:15 | Cons- Gastroenterology ---
General Information and HPI Consulting Request Date of Consult: 04/15/16 Requested By: SUSANA FREDERICK,PANCHO Reason for Consult: Etoh pancreatitis, abdominal pain. Source of Information: patient, old records Exam Limitations: no limitations History of Present Illness: Mr. Landis is a 56-year-old male with a history of alcohol abuse and alcoholic pancreatitis who presented to [facility] yesterday with complaints of midepigastric abdominal pain and back pain. He notes that he has been having worsening back pain over the past several months and that he is also been having intermittent abdominal pain. Over the past week abdominal pain has been worsening and has been associated with some bilious vomiting, but he is without any hematemesis. He reports that sometimes eating makes the abdominal pain better and he also continues to drink about 3-4 alcoholic beverages a day. He notes that the abdominal pain is similar to the abdominal pain he has had with his prior attacks of pancreatitis for which he was last hospitalized at [facility] in February. He has been without any fevers or chills. He also denies any jaundice. He is without any dayo-colored stool or dark urine. His bowel movements have been normal and he is without any bright blood per rectum, diarrhea, constipation or melena. In the ER he was hemodynamically stable and afebrile. He had a CAT scan which showed changes of pancreatitis with resolution of previously appreciated pancreatic cysts. Since admission he has been getting IV morphine for pain and has been tolerating a liquid diet. Allergies/Medications Allergies: Coded Allergies: No Known Allergies (04/14/16) Home Med List: Gabapentin 300 MG CAPSULE 1 TAB PO TID NERVE PAIN Oxycodone HCl/Acetaminophen (Percocet 5-325 MG Tablet) 5 MG-325 MG TABLET 1 TAB PO TID PRN PAIN Current Medications: Current Medications Sig/Anselmo Start time Last Medication Dose Route Stop Time Status Admin Acetaminophen 650 MG Q8P PRN 04/14 1645 AC PO Acetaminophen 1,000 MG Q8P PRN 04/14 1645 AC IV Albuterol Sulfate 3 ML ONCE ONE 04/14 1545 DC 04/14 INH 04/14 1546 1638 Dextrose/Sodium 1,000 ML Q6H 04/14 1530 DC 04/14 Chloride IV 1531 Enoxaparin Sodium 0 .STK-MED ONE 04/14 1721 DC SC Enoxaparin Sodium 40 MG DAILY 04/14 1633 AC 04/15 SC 0957 Hydromorphone HCl 2 MG Q4P PRN 04/15 1115 AC IV Hydromorphone HCl 0.6 MG ONCE ONE 04/15 0545 DC 04/15 IV 04/15 0546 0652 Hydromorphone HCl 1 MG ONCE ONE 04/14 1600 DC 04/14 IV 04/14 1601 1605 Hydromorphone HCl 0 .STK-MED ONE 04/14 1556 DC .ROUTE Hydromorphone HCl 1 MG ONCE ONE 04/14 1530 DC 04/14 IV 04/14 1531 1526 Hydromorphone HCl 0 .STK-MED ONE 04/14 1522 DC .ROUTE Hydromorphone HCl 1 MG ONCE ONE 04/14 1330 DC 04/14 IV 04/14 1331 1330 Hydromorphone HCl 0 .STK-MED ONE 04/14 1330 DC .ROUTE Hydromorphone HCl 1 MG ONCE ONE 04/14 1245 DC 04/14 IV 04/14 1246 1246 Hydromorphone HCl 0 .STK-MED ONE 04/14 1242 DC .ROUTE Ipratropium [place] 2.5 ML ONCE ONE 04/14 1545 DC 04/14 INH 04/14 1546 1637 Lactated Ringer's 1,000 ML Q5H 04/14 1730 AC 04/15 IV 0956 Lactated Ringer's 1,000 ML Q6H 04/14 1645 DC 04/14 IV 1705 Lorazepam 0 Q1P PRN 04/14 1945 AC IV Lorazepam 0 .STK-MED ONE 04/14 1848 DC .ROUTE Lorazepam 2 MG ONE ONE 04/14 1830 DC 04/14 IV 04/14 1831 1851 Lorazepam 1 MG ONCE ONE 04/14 1600 DC 04/14 IV 04/14 1601 1605 Lorazepam 0 .STK-MED ONE 04/14 1557 DC .ROUTE Morphine Sulfate 0 .STK-MED ONE 04/14 1848 DC .ROUTE Morphine Sulfate 2 MG Q4P PRN 04/14 1645 DC 04/15 IV 0838 Ondansetron HCl 4 MG ONCE ONE 04/14 1245 DC 04/14 IV 04/14 1246 1238 Ondansetron HCl 0 .STK-MED ONE 04/14 1231 DC .ROUTE Sodium Chloride 1,000 ML BOLUS ONE 04/14 1230 DC 04/14 IV 04/14 1329 1238 Past History Travel History Traveled to [place] past 21 day No Medical History Neurological: NONE EENT: NONE Cardiovascular: NONE Respiratory: NONE Gastrointestinal: GERD Hepatic: NONE Renal: NONE Musculoskeletal: chronic back pain, sciatica Psychiatric: NONE Endocrine: NONE Blood Disorders: NONE Cancer(s): NONE IN HOME CAREGIVER/Reproductive: NONE Surgical History Surgical History: appendectomy, PANCREATIC STENT Family History Relations & Conditions If Any: MOTHER (mother is alive and diabetic). FATHER (father of pneumonia). Psychosocial History Where Do You Live? Home Who Do You Live With? self Services at Home: None Primary Language: [place] Smoking Status: Current Everyday Smoker ETOH Use: occasional use Illicit Drug Use: marijuana Living Will? no Power of Professor Of Engineering/HCP? no Name of POA/HCP: daughter Functional Ability ADLs Independent: dressing, eating, toileting, bathing. Ambulation: independent IADLs Independent: shopping, housework, finances, food prep, telephone, transportation , medication admin. Review of Systems Review of Systems Constitutional: Denies: no symptoms. EENTM: Denies: no symptoms. Cardiovascular: Denies: no symptoms. Respiratory: Denies: no symptoms. GI: Reports: see HPI. Genitourinary: Denies: no symptoms. Musculoskeletal: Reports: back pain, joint pain, muscle pain. Denies: joint swelling, muscle stiffness. Skin: Denies: no symptoms. Neurological/Psychological: Denies: no symptoms. Hematologic/Endocrine: Denies: no symptoms. Immunologic/Allergic: Denies: no symptoms. All Other Systems: Reviewed and Negative Exam & Diagnostic Data Vital Signs and I&O Vital Signs Date Time Temp Pulse Resp B/P Pulse O2 O2 Flow FiO2 Ox Delivery Rate 04/15 0901 99.0 62 20 120/68 94 04/15 0617 97.7 71 20 142/80 95 Room Air 04/15 0600 97.7 71 20 142/80 04/15 0400 98.1 68 20 150/80 08 0341 98.6 68 20 150/80 95 Room Air 04/15 0000 97.5 76 20 160/94 04/14 2201 97.5 76 18 160/94 04/14 2149 97.5 76 20 160/94 95 04/14 1946 97.8 68 18 152/80 04/14 1854 97.8 84 18 164/90 04/14 1822 98.0 84 18 144/70 04/14 1714 97.8 80 18 142/80 04/14 1640 98.0 76 18 142/78 96 Room Air 04/14 1638 96 04/14 1549 97.0 80 18 174/90 04/14 1533 90 18 170/92 97 Room Air Intake & Output 04/15 1600 04/15 0400 04/14 0400 04/13 1600 04/13 0400 Intake Total 2040 900 1000 Output Total Balance 2039 900 1000 Intake, IV 4495 673 2693 Intake, Oral 440 350 Number 0 Bowel Movements Patient 164 lb 165 lb Weight Physical Exam General Appearance: well developed/nourished, no apparent distress Head: atraumatic, normal appearance Eyes: Bilateral: normal appearance. Neck: normal inspection, supple, full range of motion Respiratory: normal breath sounds, chest non-tender, no respiratory distress Cardiovascular: regular rate/rhythm Gastrointestinal: normal bowel sounds, soft, tenderness Rectal: deferred Back: normal inspection, normal range of motion Extremities: normal inspection, normal range of motion, no edema Neurologic/Psych: no motor/sensory deficits, awake, alert, oriented x 3 Skin: intact, normal color, warm/dry Results Pertinent Lab Results: Laboratory Tests 04/15 04/14 0645 1418 Chemistry Sodium (137 - 145 mmol/L) 135 L Potassium (3.5 - 5.1 mmol/L) 3.7 Chloride (98 - 107 mmol/L) 98 Carbon Dioxide (22 - 30 mmol/L) 25 Anion Gap (5 - 16) 12 BUN (9 - 20 mg/dL) 3 L Creatinine (0.7 - 1.2 mg/dL) 0.5 L Estimated GFR (>60 ml/min) > 60 BUN/Creatinine Ratio (7 - 25 %) 6.0 L Hematology CBC w Diff NO MAN DIFF REQ WBC (4.8 - 10.8 /CUMM) 12.6 H RBC (4.70 - 6.10 /CUMM) 4.28 L Hgb (14.0 - 18.0 G/DL) 13.7 L Hct (42 - 52 %) 39.7 L MCV (80.0 - 94.0 FL) 92.8 MCH (27.0 - 31.0 PG) 32.0 H RDW (11.5 - 14.5 %) 14.4 Plt Count (130 - 400 /CUMM) 159 MPV (7.4 - 10.4 FL) 7.5 Gran % (42.2 - 75.2 %) 79.2 H Lymphocytes % (20.5 - 51.1 %) 10.1 L Monocytes % (1.7 - 9.3 %) 10.5 H Eosinophils % (0 - 5 %) 0.2 Basophils % (0.0 - 2.0 %) 0 L Absolute Granulocytes (1.4 - 6.5 /CUMM) 10.0 H Absolute Lymphocytes (1.2 - 3.4 /CUMM) 1.3 Absolute Monocytes (0.10 - 0.60 /CUMM) 1.3 H Absolute Eosinophils (0.0 - 0.7 /CUMM) 0 Absolute Basophils (0.0 - 0.2 /CUMM) 0 PUBS MCHC (33.0 - 37.0 G/DL) 34.5 Urines Urinalysis LIGHT H Urine Color (YEL,AMB,STR) YEL Urine Clarity (CLEAR) HAZY H Urine pH (5.0 - 8.0) 5.5 Ur Specific [place] (1.001 - 1.035) >= 1.030 Urine Protein (NEG,<30 MG/DL) TRACE H Urine Ketones (NEG) TRACE H Urine Nitrite (NEG) NEG Urine Bilirubin (NEG) NEG Urine Urobilinogen (0.1 - 1.0 EU/dl) 0.2 Ur Leukocyte Esterase (NEG) NEG Ur Microscopic SEDIMENT EXAMINED Urine RBC (0 - 5 /HPF) 3-5 Urine WBC (0 - 2 /HPF) RARE Ur Epithelial Cells (NONE,FEW) FEW Granular Casts (NONE /LPF) 1-3 H Urine Mucus (FEW,NONE) FEW Urine Hemoglobin (NEG) MOD H Urine Glucose (N MG/DL) 100 H 04/14 1234 Chemistry Sodium (137 - 145 mmol/L) 142 Potassium (3.5 - 5.1 mmol/L) 4.1 Chloride (98 - 107 mmol/L) 100 Carbon Dioxide (22 - 30 mmol/L) 24 Anion Gap (5 - 16) 19 H BUN (9 - 20 mg/dL) 7 L Creatinine (0.7 - 1.2 mg/dL) 0.6 L Estimated GFR (>60 ml/min) > 60 BUN/Creatinine Ratio (7 - 25 %) 11.7 Glucose (65 - 99 mg/dL) 169 H Calcium (8.4 - 10.2 mg/dL) 9.0 Total Bilirubin (0.2 - 1.3 mg/dL) 0.6 AST (17 - 59 U/L) 21 ALT (21 - 72 U/L) 26 Alkaline Phosphatase (< 127 U/L) 141 H Total Protein (6.3 - 8.2 g/dL) 7.5 Albumin (3.5 - 5.0 g/dL) 4.1 Globulin (1.9 - 4.2 gm/dL) 3.4 Albumin/Globulin Ratio (1.1 - 2.2 %) 1.2 Amylase (30 - 110 U/L) 1060 H Lipase (23 - 300 U/L) 8724 H Coagulation PT (9.4 - 12.5 SEC) 10.0 INR (0.90 - 1.17) 0.95 APTT (25 - 37 SEC) 31 Hematology CBC w Diff NO MAN DIFF REQ WBC (4.8 - 10.8 /CUMM) 12.7 H RBC (4.70 - 6.10 /CUMM) 5.07 Hgb (14.0 - 18.0 G/DL) 16.0 Hct (42 - 52 %) 47.3 MCV (80.0 - 94.0 FL) 93.2 MCH (27.0 - 31.0 PG) 31.6 H RDW (11.5 - 14.5 %) 14.5 Plt Count (130 - 400 /CUMM) 231 MPV (7.4 - 10.4 FL) 6.8 L Gran % (42.2 - 75.2 %) 81.3 H Lymphocytes % (20.5 - 51.1 %) 14.2 L Monocytes % (1.7 - 9.3 %) 4.1 Eosinophils % (0 - 5 %) 0.1 Basophils % (0.0 - 2.0 %) 0.3 Absolute Granulocytes (1.4 - 6.5 /CUMM) 10.3 H Absolute Lymphocytes (1.2 - 3.4 /CUMM) 1.8 Absolute Monocytes (0.10 - 0.60 /CUMM) 0.5 Absolute Eosinophils (0.0 - 0.7 /CUMM) 0 Absolute Basophils (0.0 - 0.2 /CUMM) 0 PUBS MCHC (33.0 - 37.0 G/DL) 33.9 Toxicology Serum Alcohol (<10 MG/DL) 73.0 Imaging/Other Studies: ct scan without iv contrast: FINDINGS: LUNG BASES: The lung bases included on this study are unremarkable. LIVER, GALLBLADDER, AND BILIARY TREE: Unenhanced liver is normal in size and attenuation with no focal finding The gallbladder is moderately distended. There is an intraluminal calcification layering dependently, measuring approximately 0.6 cm, likely representing a gallstone. No gallbladder wall edema or pericholecystic fluid identified. No apparent intrahepatic biliary ductal dilatation on noncontrast images. No common bile duct dilatation is appreciated. A stent is not identified on the current CT. PANCREAS: The cystic masses associated with the pancreas seen on the earlier study are no longer identified. The pancreatic duct in the body and tail measures between 0.4 and 0.5 cm. The pancreatic and common bile ducts in the region of the pancreatic head are not well delineated. No stent is seen. There is some mild edema in the mesenteric fat surrounding the body and head of the pancreas but no peripancreatic fluid collections are seen at this time. The edematous changes have improved since the 2015 exam. No discrete pancreatic mass delineated on the noncontrast enhanced study SPLEEN: The spleen is normal in size and attenuation with no focal findings ADRENAL GLANDS: Mild prominence to the left adrenal gland is noted without a discrete mass. Right adrenal gland is normal in appearance. KIDNEYS AND URETERS: Both kidneys are normal in size and cortical thickness with no hydronephrosis, mass, stone or perinephric collection. BLADDER: The urinary bladder is incompletely distended and unremarkable in appearance GASTROINTESTINAL TRACT: There is no evidence for large or small bowel obstruction or acute inflammation. There is some diverticulosis of the sigmoid and descending colon without acute diverticulitis. Some radiodense material which may represent a suture line in the region of the ileocecal junction ABDOMINAL WALL: No hernia is seen. LYMPH NODES: No bulky mesenteric or retroperitoneal adenopathy is seen at this time. There are a few mildly prominent peripancreatic lymph nodes, improved over the previous study VASCULAR: No aneurysm is seen in the abdominal aorta PELVIC VISCERA: No mass is seen in the pelvis. There is no free fluid or loculated fluid collection OSSEOUS STRUCTURES: No acute bony abnormality IMPRESSION: The changes of pancreatitis and associated pseudocysts seen on the 2015 study are no longer identified. There is some mild residual dilatation of the pancreatic duct in the mid body and tail along with some mild edema in the peripancreatic fat. The pancreas duct in the region of the head of the pancreas is not well delineated and the stent is not identified. There is no common bile duct dilatation or common bile duct stent seen There is cholelithiasis without evidence for acute cholecystitis Assessment/Plan Assessment/Recommendations: Assessment: Mr. Landis is a 56-year-old male with a history of alcohol abuse who presents with worsening abdominal pain associated with bilious vomiting likely secondary to recurrent alcoholic pancreatitis considering he continues to drink, the CAT scan findings and his elevated lipase. He currently appears well, is tolerating liquids and his decreasing BUN from admission is a good prognostic indicator. He was noted to have gallstones on his admission CAT scan, but as his alkaline phosphatase was not significantly elevated and he was also without any significant biliary ductal dilatation on the CAT scan I do not feel that gallstones are the cause of his pancreatitis. Of note, he apparently has had pancreatic cysts which have been treated with stents in the past, but as there were no stents appreciated on the recent CAT scan and as he had no fluid collections on the recent CAT scan there does not appear to be a need to address this further at this time. It should also be noted that while his CAT scan does not show significant inflammation in his pancreas it does show some edema and this may be limited by the lack of IV contrast. Recommendations: 1. Advance diet as tolerated. 2. Analgesia as needed. 3. Monitor for signs of alcohol withdrawal and treat with benzodiazepines as needed. 4. If patient is tolerating a liquid diet would continue lactated Ringer's but would decrease to maintenance rate. 5. Would get records from [facility] about any previous endoscopic or radiological procedures to drain his pancreatic cysts. 6. Follow daily LFTs for now. I will continue to follow this patient and make further recommendations based on his clinical course and results of repeat blood work. Problem List: 1. Pancreatitis, alcoholic, acute 2. Anemia 3. Pancreatitis Copies To: VIDHI MATIAS DO Consult Acknowledgment - Thank you for your consult request.
--- NOTE | 2016-04-15 13:25 | PN- Att Addend ---
Attending Addendum Attending Brief Note Patient seen and examined in the emergency room. Plan of care discussed with the medical team and the patient. Available lab work and radiology test reports were reviewed. His epigastric pain has improved somewhat. He denies any vomiting but has been nauseous. His by mouth intake is still relatively poor. Denies any fever or chills. Vital Signs Date Time Temp Pulse Resp B/P Pulse O2 O2 Flow FiO2 Ox Delivery Rate 04/15 0801 99.0 62 20 120/68 94 04/15 0617 97.7 71 20 142/80 95 Room Air 04/15 0600 97.7 71 20 142/80 04/15 0400 98.1 68 20 150/80 04/15 0341 98.6 68 20 150/80 95 Room Air 04/15 0000 97.5 76 20 160/94 04/14 2201 97.5 76 18 160/94 04/14 2149 97.5 76 20 160/94 95 04/14 1946 97.8 68 18 152/80 04/14 1854 97.8 84 18 164/90 04/14 1822 98.0 84 18 144/70 04/14 1714 97.8 80 18 142/80 04/14 1640 98.0 76 18 142/78 96 Room Air 04/14 1638 96 04/14 1549 97.0 80 18 174/90 04/14 1533 90 18 170/92 97 Room Air Intake & Output 04/15 1600 04/15 0800 04/15 0000 Intake Total 2040 900 Output Total Balance 2040 900 Intake, IV 1600 550 Intake, Oral 440 350 Number 0 Bowel Movements Patient 164 lb Weight Exam: General: Patient awake alert oriented without any distress CVS: S1 plus S2 without any murmur or gallops Chest: Few scattered crepitation without any wheeze. There is no respiratory distress. Abdomen: Soft tender in epigastric area without any guarding or rebound, bowel sound present, GRAB DRIVER: Awake alert oriented without any focal neuro deficit and follows command appropriately Extremities: No edema; no clubbing or cyanosis noted Laboratory Tests 04/15 04/14 0645 1418 Chemistry Sodium (137 - 145 mmol/L) 135 L Potassium (3.5 - 5.1 mmol/L) 3.7 Chloride (98 - 107 mmol/L) 98 Carbon Dioxide (22 - 30 mmol/L) 25 Anion Gap (5 - 16) 12 BUN (9 - 20 mg/dL) 3 L Creatinine (0.7 - 1.2 mg/dL) 0.5 L Estimated GFR (>60 ml/min) > 60 BUN/Creatinine Ratio (7 - 25 %) 6.0 L Hematology CBC w Diff NO MAN DIFF REQ WBC (4.8 - 10.8 /CUMM) 12.6 H RBC (4.70 - 6.10 /CUMM) 4.28 L Hgb (14.0 - 18.0 G/DL) 13.7 L Hct (42 - 52 %) 39.7 L MCV (80.0 - 94.0 FL) 92.8 MCH (27.0 - 31.0 PG) 32.0 H RDW (11.5 - 14.5 %) 14.4 Plt Count (130 - 400 /CUMM) 159 MPV (7.4 - 10.4 FL) 7.5 Gran % (42.2 - 75.2 %) 79.2 H Lymphocytes % (20.5 - 51.1 %) 10.1 L Monocytes % (1.7 - 9.3 %) 10.5 H Eosinophils % (0 - 5 %) 0.2 Basophils % (0.0 - 2.0 %) 0 L Absolute Granulocytes (1.4 - 6.5 /CUMM) 10.0 H Absolute Lymphocytes (1.2 - 3.4 /CUMM) 1.3 Absolute Monocytes (0.10 - 0.60 /CUMM) 1.3 H Absolute Eosinophils (0.0 - 0.7 /CUMM) 0 Absolute Basophils (0.0 - 0.2 /CUMM) 0 PUBS MCHC (33.0 - 37.0 G/DL) 34.5 Urines Urinalysis LIGHT H Urine Color (YEL,AMB,STR) YEL Urine Clarity (CLEAR) HAZY H Urine pH (5.0 - 8.0) 5.5 Ur Specific [place] (1.001 - 1.035) >= 1.030 Urine Protein (NEG,<30 MG/DL) TRACE H Urine Ketones (NEG) TRACE H Urine Nitrite (NEG) NEG Urine Bilirubin (NEG) NEG Urine Urobilinogen (0.1 - 1.0 EU/dl) 0.2 Ur Leukocyte Esterase (NEG) NEG Ur Microscopic SEDIMENT EXAMINED Urine RBC (0 - 5 /HPF) 3-5 Urine WBC (0 - 2 /HPF) RARE Ur Epithelial Cells (NONE,FEW) FEW Granular Casts (NONE /LPF) 1-3 H Urine Mucus (FEW,NONE) FEW Urine Hemoglobin (NEG) MOD H Urine Glucose (N MG/DL) [address] abdomen and pelvis 04/14 The changes of pancreatitis and associated pseudocysts seen on the 2014 study are no longer identified. There is some mild residual dilatation of the pancreatic duct in the mid body and tail along with some mild edema in the peripancreatic fat. The pancreas duct in the region of the head of the pancreas is not well delineated and the stent is not identified. There is no common bile duct dilatation or common bile duct stent seen There is cholelithiasis without evidence for acute cholecystitis Assessment and problem list * Acute recurrent pancreatitis likely related to alcohol use; patient currently not on any medication which can be implicated in pancreatitis * Chronic back pain- patient awaiting evaluation at [facility] * Alcohol abuse * Hyperglycemia Plan * Continue clear liquids and advance diet as tolerated * Continue IV Ringer's lactate . Intake remains poor * Change morphine to IV Dilaudid 1 mg every 4 hours when necessary for pain control * Watch for withdrawal symptoms from alcohol. CIWA protocol. * GI consult note reviewed
[2016-04-16] VITALS (9 sets, daily range): BP systolic 126–164; BP diastolic 60–88
--- NOTE | 2016-04-16 00:45 | NUR ---
ALERT AND ORIENTED X 3. VITAL SIGNS STABLE. ON ROOM AIR. SKIN INTACT MEDICATION GIVEN FOR PAIN. PATIENT RESTING AT THIS TIME. WILL CONTINUE TO MONITOR
--- NOTE | 2016-04-16 11:19 | PN- Housestaff ---
MACEY HITCHCOCK 04/16/16 1119: Subjective Follow-up For: Acute pancreatitis Subjective: Seen and examined patient, currently tolerating his full liquid diet however continues to request IV Dilaudid continues to have abdominal pain although much improved since admission. Denies fever, chills, nausea, vomiting. Review of Systems Constitutional: Denies: chills, diaphoresis, fever, malaise, weakness, unexplained weight loss. Cardiovascular: Denies: chest pain, edema, orthopena, palpitations, peripheral edema, syncope. Respiratory: Denies: cough, hemoptysis, orthopnea, short of breath, sputum production, stridor, wheezing. Gastrointestinal: Reports: abdominal pain, diarrhea. Denies: no symptoms, see HPI, bloating, constipation, distention, bowel incontinence, melena, nausea, bloody stool, changes in stool, vomiting, steatorrhea. Objective Last 24 Hrs of Vital Signs/I&O Vital Signs Date Time Temp Pulse Resp B/P Pulse O2 O2 Flow FiO2 Ox Delivery Rate 04/16 903 148/80 04/16 0559 98.9 76 20 164/88 94 04/16 0600 98.9 76 20 164/88 04/16 0000 99.4 65 20 126/60 04/15 2236 99.4 65 20 126/60 97 04/15 2200 98.8 67 18 130/62 04/15 2000 98.8 67 18 130/62 04/15 1800 98.8 67 18 130/62 04/15 1600 Room Air 04/15 1600 98.8 67 18 130/62 Intake & Output 04/16 1600 04/16 0800 04/16 0000 Intake Total 1500 200 Output Total 350 750 350 Balance -350 750 -150 Intake, IV 1000 Intake, Oral 500 200 Number 0 Bowel Movements Output, Urine 350 750 350 Patient 163 lb Weight Physical Exam General Appearance: Alert, Oriented X3, Cooperative, No Acute Distress Cardiovascular: Regular Rate, Normal S1, Normal S2 Lungs: Clear to Auscultation, Normal Air Movement Abdomen: Soft, midepigastric pain to palpation Current Medications: Current Medications Sig/Anselmo Start time Last Medication Dose Route Stop Time Status Admin Acetaminophen 650 MG .STK-MED ONE 04/15 1901 DC PO 04/15 190 Acetaminophen 650 MG Q8P PRN 04/14 1645 AC 04/16 PO 1048 Acetaminophen 1,000 MG Q8P PRN 04/14 1645 AC IV Enoxaparin Sodium 40 MG DAILY 04/14 1633 AC 04/16 SC 0900 Gabapentin 100 MG Q8 04/16 1030 AC 04/16 PO 1236 Hydromorphone HCl 1 MG Q6P PRN 04/16 1400 AC IV Hydromorphone HCl 1 MG Q4P PRN 04/15 1645 DC 04/16 IV 1330 Hydromorphone HCl 2 MG Q4P PRN 04/15 1115 DC 04/15 IV 1240 Lactated Ringer's 1,000 ML Q10H 04/16 1015 AC 04/16 IV 1047 Lactated Ringer's 1,000 ML Q5H 04/14 1730 DC 04/16 IV 0900 Lorazepam 0 Q1P PRN 04/14 1945 AC IV Omeprazole 20 MG ONCE ONE 04/15 2245 DC 04/15 PO 04/15 2246 2347 Ondansetron HCl 4 MG ONCE ONE 04/15 1845 DC 04/15 IV 04/15 1846 1849 Patient Medication 1 ED .ST-MED ONE 04/16 1357 SC Teaching ED 04/16 1358 Assessment/Plan Assessment: 56-year-old gentleman with past history significant for alcohol abuse, pancreatitis complicated by pseudocyst status post stent done at [facility] in 2014, here for evaluation of abdominal pain. Found to have elevated white count with left shift and no bandemia, elevated ALP of 141, increased amylase 1060, lipase 8724, CT abdomen and pelvis showed resolution of the pseudocyst from the 2015 study, mild residual visual dilatation of the pancreatic duct, no bile duct dilatation and cholelithiasis. Pain is improved today Plan Pancreatitis Secondary to alcohol use versus gallstones Currently on liquid diet, will decrease IV Ringer lactate 75ml/hr On IV diluadid for pain, will start gabapentin for neuropathic pain will order LFTS for am GI on board appreciated recommendations Alcohol withdrawal on CIWA protocol DVT prophylaxis Subcutaneous Lovenox DNI (do not intubate) DNR (do not resuscitate) Problem List: 1. Pancreatitis 2. Alcohol withdrawal Pain Ratin Pain Location: Abdomen Pain Goal: Pain 4 or less Pain Plan: Will continue Dilaudid and add gabapentin Tomorrow's Labs & Rationales: Transaminitis will obtain LFTs JAIME WASSERMAN MD 04/16/16 1255: Attending MD Review Statement Attending Statement Attending MD Statement: examined this patient, discuss w/resident/PA/LODGING FACILITIES ATTENDANT, agreed w/resident/PA/LODGING FACILITIES ATTENDANT, reviewed EMR data (avail) Attending Assessment/Plan: 56M PMH EtOH abuse, anxiety admitted with acute alcoholic pancreatitis. Patient is improving, tolerating liquid diet today but still with significant pain. Has had chronic abdominal pain for months and recurrent episodes of acute pancreatitis. Pain is possibly secondary to chronic pancreatitis as well. Afebrile, stable vitals, exam benign, labs reviewed. 1. Acute alcoholic pancreatitis 2. EtOH abuse 3. Anxiety Plan - Start Gabapentin 100mg TID - Change Dilaudid to PO - Advance diet - Follow GI recommendations - Continue IV hydration - DVT PPx
[2016-04-17] VITALS (7 sets, daily range): BP systolic 116–150; BP diastolic 70–80
--- NOTE | 2016-04-17 00:21 | NUR ---
ALERT AND ORIENTED X 3. VITAL SIGNS STABLE. ON ROOM AIR. MEDICATION GIVEN FOR PAIN. PATIENT RESTING AT THIS TIME. WILL CONTINUE TO MONITOR
[2016-04-17] MEDS ORDERED: GABAPENTIN100 M2 PO (07:25)
--- NOTE | 2016-04-17 07:26 | Patient Discharge Instructions ---
Discharge Instructions General Discharge Information You were seen/treated for: Abdominal pain Special Instructions: please follow up with your primary care physician within one week of discharge Acute Coronary Syndrome Inclusion Criteria At DC or during hospital stay patient has or had the following: ACS DIAGNOSIS No Discharge Core Measures Meds if any: Prescribed or Continued at Discharge Meds if any: NOT Prescribed or Continued at Discharge Congestive Heart Failure Inclusion Criteria At DC or during hospital stay patient has or had the following: CHF DIAGNOSIS No Discharge Core Measures Meds if any: Prescribed or Continued at Discharge Meds if any: NOT Prescribed or Continued at Discharge Cerebrovascular accident Inclusion Criteria At DC or during hospital stay patient has or had the following: CVA/TIA Diagnosis No Discharge Core Measures Meds if any: Prescribed or Continued at Discharge Meds if any: NOT Prescribed or Continued at Discharge Venous thromboembolism Inclusion Criteria VTE Diagnosis No VTE Type NONE VTE Confirmed by (Test) NONE Discharge Core Measures - Per Current guidelines, there needs to be overlap - treatment for the first 5 days of Warfarin therapy. - If discharged on Warfarin prior to 5 days of - overlap therapy, the patient will need to be - assessed for post discharge needs including - *Post discharge parental anticoagulation - *Warfarin and/or parental anticoagulation education - *Follow up date to check INR post discharge At least 5 days overlap therapy as Inpatient No Meds if any: Prescribed or Continued at Discharge Note: Overlap Therapy is Warfarin and Anticoagulant Meds if any: NOT Prescribed or Continued at Discharge
--- NOTE | 2016-04-17 07:29 | PN- Housestaff ---
MACEY HITCHCOCK 04/17/16 0729: Subjective Follow-up For: Pancreatitis Subjective: Examined patient, sitting comfortably in bed. But continues to complain of abdominal pain. Is agreeable to switching his IV Dilaudid to by mouth and also to try and advance his diet today. Denies fever, chills, nausea, vomiting Review of Systems Constitutional: Denies: chills, diaphoresis, fever, malaise, weakness, unexplained weight loss. Cardiovascular: Denies: chest pain, edema, orthopena, palpitations, peripheral edema, syncope. Respiratory: Denies: cough, hemoptysis, orthopnea, short of breath, sputum production, stridor, wheezing. Gastrointestinal: Reports: abdominal pain. Objective Last 24 Hrs of Vital Signs/I&O Vital Signs Date Time Temp Pulse Resp B/P Pulse O2 O2 Flow FiO2 Ox Delivery Rate 04/17 699 98.6 63 20 120/70 96 Room Air 04/16 2216 98.4 70 20 126/70 93 Room Air 04/16 2200 98.4 70 20 126/70 04/16 2000 99.7 80 20 150/70 04/16 1800 99.7 80 20 150/70 04/16 1600 99.7 80 20 150/70 04/16 1600 99.7 80 20 150/70 97 Room Air Intake & Output 04/17 1600 04/17 0800 04/17 0000 Intake Total Output Total 1020 Balance -1020 Output, Urine 1020 Physical Exam General Appearance: Alert, Oriented X3, Cooperative, No Acute Distress Cardiovascular: Regular Rate, Normal S1, Normal S2 Lungs: Clear to Auscultation, Normal Air Movement Abdomen: Normal Bowel Sounds, Soft, No Tenderness Current Medications: Current Medications Sig/Anselmo Start time Last Medication Dose Route Stop Time Status Admin Acetaminophen 650 MG .STK-MED ONE 04/16 1042 DC PO 04/16 1043 Acetaminophen 650 MG Q8P PRN 04/14 1645 AC 04/16 PO 1048 Acetaminophen 1,000 MG Q8P PRN 04/14 1645 AC 04/17 IV 0430 Al Hydroxide/Mg 30 ML .STK-MED ONE 04/16 1548 DC Hydroxide PO 04/16 1549 Al Hydroxide/Mg 30 ML ONCE ONE 04/16 1530 DC 04/16 Hydroxide PO 04/16 1531 1556 Enoxaparin Sodium 40 MG DAILY 04/14 1633 AC 04/16 SC 0900 Gabapentin 100 MG Q8 04/16 1030 AC 04/17 PO 0616 Hydromorphone HCl 4 MG Q6P PRN 04/17 0845 AC PO Hydromorphone HCl 1 MG Q6P PRN 04/16 1400 DC 04/17 IV 0530 Hydromorphone HCl 1 MG Q4P PRN 04/15 1645 DC 04/16 IV 1330 Lactated Ringer's 1,000 ML Q10H 04/16 1015 AC 04/17 IV 0430 Lactated Ringer's 1,000 ML Q5H 04/14 1730 DC 04/16 IV 0900 Lorazepam 0 Q1P PRN 04/14 1945 AC IV Patient Medication 1 ED .STK-MED ONE 04/16 1357 MI Teaching ED 04/16 1358 Last 24 Hrs of Lab/Rafal Results Last 24 Hrs of Labs/Mics: Laboratory Tests 04/17/16 0600: Total Bilirubin 1.1, Direct Bilirubin 0.5 H, AST 14 L, ALT 23, Alkaline Phosphatase 116, Total Protein 5.6 L, Albumin 2.7 L Assessment/Plan Assessment: 56-year-old gentleman with past history significant for alcohol abuse, pancreatitis complicated by pseudocyst status post stent done at [place] in 2014, here for evaluation of abdominal pain. Found to have elevated white count with left shift and no bandemia, elevated ALP of 141, increased amylase 1060, lipase 8724, CT abdomen and pelvis showed resolution of the pseudocyst from the 2015 study, mild residual visual dilatation of the pancreatic duct, no bile duct dilatation and cholelithiasis. Pain is improved today Plan Pancreatitis Secondary to alcohol use versus gallstones Advanced to full heart healthy diet Switch to by mouth Dilaudid today, and continue gabapentin for neuropathic pain GI no longer follow patient Alcohol withdrawal dc [facility] protocol DVT prophylaxis Subcutaneous Lovenox DNI (do not intubate) DNR (do not resuscitate) Problem List: 1. Chronic back pain 2. Pancreatitis Pain Ratin Pain Location: abdomen Pain Goal: Pain 4 or less Pain Plan: current regimen Tomorrow's Labs & Rationales: None required JAIME WASSERMAN MD 04/17/16 1431: Attending MD Review Statement Attending Statement Attending MD Statement: examined this patient, discuss w/resident/PA/PLATFORM BEATER, agreed w/resident/PA/PLATFORM BEATER, reviewed EMR data (avail) Attending Assessment/Plan: 56M PMH EtOH abuse, anxiety admitted with acute alcoholic pancreatitis. Has had chronic abdominal pain for months and recurrent episodes of acute pancreatitis. Pain is possibly secondary to chronic pancreatitis as well. Afebrile, stable vitals, exam benign, labs reviewed. Pain is improved today, tolerating diet well. Tolerated Gabapentin without difficulty. 1. Acute alcoholic pancreatitis 2. EtOH abuse 3. Anxiety Plan - Increase Gabapentin to 300mg TID - Continue PO Dilaudid - Advance diet - Follow GI recommendations - Continue IV hydration - DVT PPx
[2016-04-17] MEDS ORDERED: GABAPENTIN300 M2 PO (14:31)
[2016-04-17] MEDS ORDERED: PERCOCET 5-3251 EACH PO (14:31)
[2016-04-18] VITALS: BP 150/80
[2016-04-18 02:00] VITALS: BP 150/80
[2016-04-18 04:00] VITALS: BP 150/80
[2016-04-18 06:50] VITALS: BP 150/70
--- NOTE | 2016-04-18 07:27 | PN- Housestaff ---
Subjective Follow-up For: Pancreatitis Subjective: Seen and examined patient, offers no complaints states that his abdominal pain waxes and wanes and currently he is pain-free. Has been tolerating his diet so for. Denies nausea, vomiting, chest pain, shortness of breath.. Review of Systems Constitutional: Denies: chills, diaphoresis, fever, malaise, weakness, unexplained weight loss. Cardiovascular: Denies: chest pain, edema, orthopena, palpitations, peripheral edema, syncope. Respiratory: Denies: no symptoms, cough, hemoptysis, orthopnea, short of breath, sputum production, stridor, wheezing. Gastrointestinal: Reports: abdominal pain. Denies: bloating, constipation, diarrhea, distention, bowel incontinence, melena, nausea, bloody stool, changes in stool, vomiting, steatorrhea. Objective Last 24 Hrs of Vital Signs/I&O Vital Signs Date Time Temp Pulse Resp B/P Pulse O2 O2 Flow FiO2 Ox Delivery Rate 04/18 0650 98.1 65 20 150/70 95 04/18 0400 97.5 66 20 150/80 04/18 0200 97.5 66 20 150/80 04/18 0000 97.5 66 20 150/80 04/17 2200 97.5 66 20 150/80 04/17 2159 97.5 66 20 150/80 96 04/17 2000 97.0 65 20 116/70 04/17 1407 97.0 65 20 70 94 Room Air Intake & Output 04/18 1600 04/18 0800 04/18 0000 Intake Total 1010 1130 Output Total 600 Balance 410 1130 Intake, IV 650 650 Intake, Oral 360 480 Output, Urine 600 Physical Exam General Appearance: Alert, Oriented X3, Cooperative, No Acute Distress Cardiovascular: Regular Rate, Normal S1, Normal S2 Lungs: Clear to Auscultation, Normal Air Movement Abdomen: Normal Bowel Sounds, Soft, No Tenderness Current Medications: Current Medications Sig/Anselmo Start time Last Medication Dose Route Stop Time Status Admin Acetaminophen 1,000 MG .STK-MED ONE 04/17 2019 DC IV 04/17 2020 Acetaminophen 650 MG Q8P PRN 04/14 1645 AC 04/16 PO 1048 Acetaminophen 1,000 MG Q8P PRN 04/14 1645 AC 04/18 IV 0445 Al Hydroxide/Mg 30 ML ONCE ONE 04/17 1030 CAN Hydroxide PO 04/17 1031 Calcium Carbonate 500 MG ONCE ONE 04/17 1030 DC 04/17 PO 04/17 1031 1117 Enoxaparin Sodium 40 MG DAILY 04/14 1633 AC 04/17 SC 1022 Gabapentin 300 MG Q8 04/17 2200 AC 04/18 PO 0441 Gabapentin 300 MG Q6 04/17 1800 DC PO Gabapentin 100 MG Q8 04/16 1030 DC 04/17 PO 0616 Hydromorphone HCl 4 MG Q6P PRN 04/17 0845 AC 04/18 PO 0330 Hydromorphone HCl 1 MG Q6P PRN 04/16 1400 DC 04/17 IV 0530 Lactated Ringer's 1,000 ML Q10H 04/16 1015 AC 04/18 IV 0603 Lorazepam 0 Q1P PRN 04/14 1945 AC IV Omeprazole 40 MG ONCE ONE 04/17 1715 DC 04/17 PO 04/17 1716 1707 Assessment/Plan Assessment: 56-year-old gentleman with past history significant for alcohol abuse, pancreatitis complicated by pseudocyst status post stent done at [place] in 2014, here for evaluation of abdominal pain. Found to have elevated white count with left shift and no bandemia, elevated ALP of 141, increased amylase 1060, lipase 8724, CT abdomen and pelvis showed resolution of the pseudocyst from the 2015 study, mild residual visual dilatation of the pancreatic duct, no bile duct dilatation and cholelithiasis. Currently tolerating his diet Plan Pancreatitis Secondary to alcohol use versus gallstones Advanced to full heart healthy diet On by mouth Dilaudid, will be given Percocet for pain control upon discharge Gabapentin increased to 300 mg 3 times a day, and he is tolerating this medication well GI no longer following patient DVT prophylaxis Subcutaneous Lovenox DNI (do not intubate) DNR (do not resuscitate) Problem List: 1. Pancreatitis Pain Ratin Pain Location: abdomen Pain Goal: Pain 4 or less Pain Plan: current regimen Tomorrow's Labs & Rationales: none required
--- NOTE | 2016-04-18 10:06 | Discharge Summary ---
Visit Information Visit Dates Admission Date: 04/14/16 Discharge Date: 04/18/16 Hospital Course Course Attending Physician: JAIME WASSERMAN MD [facility]: 56-year-old gentleman with past medical history of pancreatitis with complex cyst on the bubba-pancreatic head and tail, portal vein thrombosis with cavernous transformation. Admitted to [facility] for severe abdominal pain Patient reported that he often has abdominal pain which is constantly there since the past few years. Aggravated on moving and walking around and sometimes is improved on eating. On day of admission pain was so severe that he decided to come to the ED. Reported having some nausea and nonbloody, nonbilious vomiting. Denied fever, chills, shortness of breath. Vitals on admission: T 97.0, HR 90, BP 170/92 97% RA Labs pertinent for elevated white count with left shift and no bandemia, amylase 1060, lipase 8724 He was admitted to the general medicine floor: Pancreatitis CT abdomen and pelvis showed resolution of the pseudocyst from the 2015 study, mild residual visual dilatation of the pancreatic duct, no bile duct dilatation and cholelithiasis. GI was consulted He was initially kept nothing by mouth and was given IV fluids with Ringer lactate and pain control with IV Dilaudid. As he clinically improved, his diet was advanced as tolerated and gabapentin was added for further pain management. DVT prophylaxis Subcutaneous Lovenox Complications: none Allergies: Coded Allergies: No Known Allergies (04/14/16) Significant Procedures: CT ABDOMEN AND PELVIS WITHOUT CONTRAST FINDINGS: LUNG BASES: The lung bases included on this study are unremarkable. LIVER, GALLBLADDER, AND BILIARY TREE: Unenhanced liver is normal in size and attenuation with no focal finding The gallbladder is moderately distended. There is an intraluminal calcification layering dependently, measuring approximately 0.6 cm, likely representing a gallstone. No gallbladder wall edema or pericholecystic fluid identified. No apparent intrahepatic biliary ductal dilatation on noncontrast images. No common bile duct dilatation is appreciated. A stent is not identified on the current CT. PANCREAS: The cystic masses associated with the pancreas seen on the earlier study are no longer identified. The pancreatic duct in the body and tail measures between 0.4 and 0.5 cm. The pancreatic and common bile ducts in the region of the pancreatic head are not well delineated. No stent is seen. There is some mild edema in the mesenteric fat surrounding the body and head of the pancreas but no peripancreatic fluid collections are seen at this time. The edematous changes have improved since the 2015 exam. No discrete pancreatic mass delineated on the noncontrast enhanced study SPLEEN: The spleen is normal in size and attenuation with no focal findings ADRENAL GLANDS: Mild prominence to the left adrenal gland is noted without a discrete mass. Right adrenal gland is normal in appearance. KIDNEYS AND URETERS: Both kidneys are normal in size and cortical thickness with no hydronephrosis, mass, stone or perinephric collection. BLADDER: The urinary bladder is incompletely distended and unremarkable in appearance GASTROINTESTINAL TRACT: There is no evidence for large or small bowel obstruction or acute inflammation. There is some diverticulosis of the sigmoid and descending colon without acute diverticulitis. Some radiodense material which may represent a suture line in the region of the ileocecal junction ABDOMINAL WALL: No hernia is seen. LYMPH NODES: No bulky mesenteric or retroperitoneal adenopathy is seen at this time. There are a few mildly prominent peripancreatic lymph nodes, improved over the previous study VASCULAR: No aneurysm is seen in the abdominal aorta PELVIC VISCERA: No mass is seen in the pelvis. There is no free fluid or loculated fluid collection OSSEOUS STRUCTURES: No acute bony abnormality IMPRESSION: The changes of pancreatitis and associated pseudocysts seen on the 2015 study are no longer identified. There is some mild residual dilatation of the pancreatic duct in the mid body and tail along with some mild edema in the peripancreatic fat. The pancreas duct in the region of the head of the pancreas is not well delineated and the stent is not identified. There is no common bile duct dilatation or common bile duct stent seen There is cholelithiasis without evidence for acute cholecystitis Disposition Summary Disposition Principal Diagnosis: Pancreatitis Additional Diagnosis: None Discharge Disposition: home or self care Discharge Instructions General Discharge Information Code Status: Full Code Patient's Diet: Heart healthy Patient's Activity: Full activity Follow-Up Instructions/Appts: follow up with your primary care physician within one week of discharge Medications at Discharge Discharge Medications: Start taking the following new medications: Gabapentin (Gabapentin) 300 MG CAPSULE 1 Tablet ORAL THREE TIMES DAILY Days = 30 No Refills Comments: Last Taken: 04/18/16 Time: 2PM Oxycodone HCl/Acetaminophen (Percocet 5-325 MG Tablet) 5 MG-325 MG TABLET 1 Tablet ORAL THREE TIMES DAILY as needed for PAIN Qty = 15 No Refills Comments: Last Taken: NOT GIVEN IN HOSPITAL Time: Copies To: VIDHI MATIAS DO Attending Review Statement Documenting Attending: JAIME WASSERMAN MD
== END 2016-04-18 14:55 | DRG 282 ==
LOC: ERH 11:46 → 2NA 15:17 → ERHI 15:17 → ENPENDDIS 15:17 → 2NA 20:55
PROVIDERS: Emergency Medicine; Internal Medicine; ADMIT Hospitalist
DX: K85.20 Alcohol induced acute pancreatitis without necrosis or infection (principal); F10.239 Alcohol dependence with withdrawal, unspecified; M54.89 Other dorsalgia; Y90.3 Blood alcohol level of 60-79 mg/100 ml; K80.20 Calculus of gallbladder without cholecystitis without obstruction; D64.9 Anemia, unspecified
CPT/HCPCS: 2NASP; 36415; 74176; 81001; 82436; 93005; 93010; 96361; 96374; 96375; 96376; G0480; J0131; J1650; J2405; J7042; J7120